=== PATIENT | female | born 1995 | race Caucasian/White ===

== ENCOUNTER 2024-11-25 13:37 | Outpatient (AMB) | payer OTHER, SELFPAY ==
--- NOTE | 2024-11-25 13:48 | A.OFFVIS_ITS ---
Intake Visit Reasons: 2 months Allergies No Known Allergies Allergy (Verified 11/20/24 15:39) Medication List - Last Reconciled 11/25/24 by Raulito Junior MD desvenlafaxine succinate ER 25 mg PO QAM levonorgestrel-ethinyl estrad 0.15 mg-30 mcg (91) 1 tab PO DAILY levothyroxine 100 mcg PO DAILY propranolol 20 mg PO ONCE 90 days spironolactone 200 mg PO DAILY zolmitriptan 5 mg PO DAILY PRN HPI Comments Details: 29 years old woman with anxiety, depression, migraine without aura and benign essential tremor. She reports that her headaches occur sporadically in cycles, typically manifesting over three consecutive days before remitting for a few days. The patient was on propranolol for migraine prevention but ceased due to lack of noticeable improvement and episodes of increased lightheadedness. She discontinued lithium, suspecting it might have contributed to some adverse effects, and has not noted a mild reduction of tremor. [facility] Medical History (Updated 11/25/24 @ 13:50 by Raulito Junior MD) Acne Anxiety Depression Hypothyroidism Benign essential tremor Migraine without aura Assessment & Plan Assessment & Plan (1) Migraine without aura, not intractable, without status migrainosus: Comment: Meds tried: Sumatriptan Code(s): G43.009 - Migraine without aura, not intractable, without status migrainosus Category: Medical (2) Benign essential tremor: Code(s): G25.0 - Essential tremor Category: Medical Plan Impression: a: Migraine w/o aura, sporadic b: Mild benign essential tremor Rec: a: Sumatriptan 50mg one a day as needed b: No med for tremor Medications: New sumatriptan succinate 50 mg orally one a day as needed PRN; do not exceed 4 doses per 24 hrs 10 tabs 5RF migraine headache Coding Level of Care Code Est Pt Level 4 (81851) Diagnoses Migraine without aura, not intractable, without status migrainosus G43.009 Benign essential tremor G25.0
--- OUTSIDE RECORDS SUMMARY | 2024-11-25 14:04 | XMS_ITS | Encounter Summary ---
Author Organization [facility] Address [address] [place] [phone] Phone Care Team Providers Care Percussion Teacher Name Role Phone Jina Davis MD Primary Care Provider [phone] Encounter Details Date Type Department Care Team (Late st Contact Info) Description 11/21/2016 Conversion Encounter [facility] - [address], [address] [place] [address] Jina Davis MD [address] [place] [address] Social History Tobacco Use Types Packs/Day Years Used Date Smoking Tobacco: Never Assessed Comments Unknown Sex and Gender Information Value Date Recorded Sex Assigned at Not on file Legal Sex Female 6:31 PM EDT Gender Identity Not on file Sexual Orientation Not on file documented as of this encounter Plan of Treatment Not on file documented as of this encounter Visit Diagnoses Not on filedocumented in this encounter Care Teams Percussion Teacher Relationship Specialty Start Date End Date Jina Davis MD [address] [place] [address] PCP - General 08/27/16 10/10/20 documented as of this encounter
--- OUTSIDE RECORDS SUMMARY | 2024-11-25 14:04 | XMS_ITS | Encounter Summary ---
Author Organization [facility] Address [address] [place] [address] Phone Care Team Providers Care Manufacturing Plant Technician Name Role Phone Prem Dyson MD Primary Care Provider [phone] Prem Dyson MD Primary Care Provider [phone] Encounter Details Date Type Department Care Team (Latest Contact Info) Description 03/19/2022 Transcribe Orders [facility] [address] [address] Allison Richardson NP [address] [place] [address] Constipation, unspecified constipation type (Primary Dx) Social History Tobacco Use Types Packs/Day Years Used Date Smoking Tobacco: Never Smokeless Tobacco: Never Alcohol Use Standard Drinks/Week Comments Yes 0 (1 standard drink = 0.6 oz pur e alcohol) Comments No Sex and Gender Information Value Date Recorded Sex Assigned at Female 07/14/2017 11:53 PM EDT Legal Sex Female 8:49 PM EDT Gender Identity Female 07/14/2017 11:53 PM EDT Sexual Orientation Straight 07/14/2017 11 :53 PM EDT documented as of this encounter Plan of Treatment Upcoming Encounters Date Type Department Care Team (Late st Contact Info) Description 12/09/2024 9:30 AM EDT Office Visit [facility] [address] [place] [address] Maximo Black DO [address] [place] [phone] [email or web address] documented as of this encounter Results * C-Reactive Protein (03/19/2022 2:14 PM EST) C REACTIVE PROTEIN <3.0 0.0 - 4.0 mg/L [facility] Blood 03/19/2022 2:14 PM EST 03/19/2022 2:18 PM EST us Allison Richardson NP LAB BLOOD ORDERABLES Hannah l Result [facility] [address] [place] [address] * Comprehensive metabolic panel (03/19/2022 2:14 PM EST) SODIUM 136 133 - 146 mmol/L [facility] POTASSIUM 4.1 3.3 - 5.1 mmol/L [facility] CHLORIDE 101 96 - 108 mmol/L [facility] CO2 29 21 - 35 mmol/L [facility] BUN 12 6 - 19 mg/dL [facility] CREATININE 0.80 0.5 - 1.5 mg/dL [facility] GLUCOSE 83 70 - 99 mg/dL [facility] ALBUMIN 4.2 3.9 - 4.8 g/dL [facility] TOTAL PROTEIN 7.2 6.5 - 8.0 g/dL [facility] CALCIUM 10.0 8.4 - 10.3 mg/dL [facility] ALKALINE PHOSPHATASE 44 39 - 117 U/L [facility] TOTAL BILIRUBIN 0.4 0.0 - 1.2 mg/dL [facility] AST 20 0 - 37 U/L [facility] ALT 9 0 - 40 U/L [facility] GLOBULIN 3.0 1 - 4.8 g/dL [facility] EGFR 105 >59 mL/min/1.7 3m2 [facility] Comment:Estimated glomerular filtration rate calculated using the CKD-EPI refit equation. ANION GAP 10 10 - 20 mmol/L [facility] Blood 03/19/2022 2:14 PM EST 03/19/2022 2:18 PM EST Allison Richardson [facility] LAB BLOOD ORDERABLES Hannah l Result Performing Organization Address City/[facility]/ZIP Co de Phone Number [address] [phone] * (ABNORMAL) CBC (03/19/2022 2:14 PM EST) WBC 7.58 4.00 - 11.00 K/uL [facility] RBC 4.52 3.72 - 5.30 M/uL [facility] HGB 13.0 11.0 - 15.2 g/dL [facility] HCT 40.9 31.6 - 44.1 % [facility] PLT 399 140 - 430 K/uL [facility] MCV 90.5 78.0 - 97.0 fL [facility] MCH 28.8 25.0 - 33.0 pg [facility] MCHC 31.8(L) 32.0 - 36.0 g/dL [facility] RDW 12.7 11.0 - 16.0 % [facility] MPV 11.7 8.4 - 12.8 fl [facility] Blood 03/19/2022 2:14 PM EST 03/19/2022 2:18 PM EST Allison Richardson NP LAB BLOOD ORDERABLES Hannah l Result Performing Organization Address City/[facility]/ZIP Co de Phone Number [address] [address] * Immunoglobulin A (03/19/2022 2:14 PM EST) IgA 151 70 - 400 mg/dL [facility] Blood 03/19/2022 2:14 PM EST 03/19/2022 2:18 PM EST Allison Richardson NP LAB BLOOD ORDERABLES Hannah l Result Performing Organization Address City/[facility]/ZIP Co de Phone Number [address] [address] * Tissue transglutaminase IgA (03/19/2022 2:14 PM EST) TTG IGA ANTIBODY <1.2 <4.0 (Negative) U/mL [facility] Blood 03/19/2022 2:14 PM EST 03/19/2022 2:17 PM EST us Allison Tika Richardson [facility] LAB BLOOD ORDERABLES Hannah l Result [facility] [address] [place] [address] documented in this encounter Visit Diagnoses Diagnosis Constipation, unspecified constipation type- Primary documented in this encounter Care Teams Manufacturing Plant Technician Relationship Specialty Start Date End Date Prem Dyson MD [email or web address] PCP - General Internal Medicine 07/14/17 01/07/23 Prem Dyson MD [address] [place] [phone] [email or web address] PCP - General Internal Medicine 01/08/23 documented as of this encounter Additional Source Comments The information contained in this document represents components of the legal health record. It is not the complete legal health record.[facility]
== END 2024-11-25 13:56 | disposition home or self-care (01) ==
LOC: HO.HSM 13:38
PROVIDERS: PCP Internal Medicine; Referring Provider Internal Medicine; Visit Provider Psychiatry & Neurology Neurology
DX: G43.009 Migraine without aura, not intractable, without status migrainosus (principal); G25.0 Essential tremor
CPT/HCPCS: 99214